=== PATIENT | female | born 1995 | race Caucasian/White ===

== ENCOUNTER 2023-01-27 09:20 | Emergency (ER) | payer OTHER ==
[~2023-01-27] VITALS: Wt 56.7 kg
[~2023-01-27 09:20] MED LIST: AUGMENTIN 875-1 EACH PO; IBUPROFEN600 MG PO
[2023-01-27] MEDS ORDERED: MEDROL4 MG PO (10:23)
[2023-01-27] MEDS ORDERED: AMOX TR-K CLV1 EAC1 PO (10:23)
[2023-01-27 11:23] VITALS: BP 124/73
== END 2023-01-27 11:23 | disposition home or self-care (01) ==
LOC: ED 09:20
DX: J36 Peritonsillar abscess (principal)
CPT/HCPCS: 36415; 42700; 80053; 85025; 99283-25; J0696; J1100; J1885; J2405; J7030